=== PATIENT | female | born 1980 | race Caucasian/White ===

== ENCOUNTER 2016-08-28 12:12 | Emergency (ER) | payer SELFPAY ==
[2016-08-28 12:42] VITALS: BP 115/80
[2016-08-28 14:01] LABS: Anion Gap 15 mmol/L; BUN/Creatinine Ratio 11.11; Blood Urea Nitrogen 10 mg/dL (7-17); Calcium 8.6 mg/dL (8.4-10.2); Carbon Dioxide 25 mmol/L (22-30); Chloride 100.3 mmol/L (98-107); Glucose 108 mg/dL (65-100); Sodium 136 mmol/L (137-145)
[2016-08-28 14:15] LABS: Basophils % (Auto) 0.6 % (0.0-1.8); Eosinophils % (Auto) 0.2 % (0.0-4.3); Hematocrit 49.3 % (30.3-42.9); Hemoglobin 15.9 gm/dl (10.1-14.3); Mean Corpuscular HGB Conc 32 % (30-34); Mean Corpuscular Hemoglobin 29 pg (28-32); Mean Corpuscular Volume 90 fl (79-97); Red Blood Count 5.47 M/mm3 (3.65-5.03); Red Cell Distribution Width 14.7 % (13.2-15.2)
[2016-08-28 14:23] LABS: Platelet Count 234 K/mm3 (140-440)
== END 2016-08-28 14:31 | disposition left against medical advice (07) ==
LOC: ED 12:12
DX: R07.9 Chest pain, unspecified (principal); R11.2 Nausea with vomiting, unspecified; R06.02 Shortness of breath; R42 Dizziness and giddiness; Z53.21 Procedure and treatment not carried out due to patient leaving prior to being seen by health care provider
CPT/HCPCS: 36415; 80048; 84484; 85025; 93005; 93010